=== PATIENT | female | born 1955 | race Caucasian/White ===

== ENCOUNTER 2019-06-06 17:04 | Emergency (ER) | payer OTHER ==
[~2019-06-06] VITALS: Ht 165.1 cm; Wt 115.7 kg
[2019-06-06] MEDS ORDERED: ZESTRIL2.5 MG (17:13)
[2019-06-06] MEDS ORDERED: GLUCOSAMINE HC500 MG (17:13)
[2019-06-06] MEDS ORDERED: METFORMIN (17:13)
== END 2019-06-06 20:35 | disposition home or self-care (01) ==
LOC: ER 17:04
DX: S63.284A Dislocation of proximal interphalangeal joint of right ring finger, initial encounter (principal); S01.121A Laceration with foreign body of right eyelid and periocular area, initial encounter; M12.541 Traumatic arthropathy, right hand; W18.09XA Striking against other object with subsequent fall, initial encounter; Y93.89 Activity, other specified; Y92.814 Boat as the place of occurrence of the external cause; Y99.8 Other external cause status